=== PATIENT | female | born 1955 | race Caucasian/White ===

== ENCOUNTER 2018-03-06 09:44 | Outpatient (CLI) | payer OTHER | END 2018-03-06 10:04 | disposition home or self-care (01) | LOC: SONOGRAMA 09:44 | DX: E04.1 Nontoxic single thyroid nodule (principal) ==

== ENCOUNTER 2018-04-25 08:56 | Outpatient (CLI) | payer OTHER | END 2018-04-25 09:03 | disposition home or self-care (01) | LOC: RX STUDY 08:56 | DX: E04.1 Nontoxic single thyroid nodule (principal) ==